=== PATIENT | male | born 1970 | race Caucasian/White ===

== ENCOUNTER → 2019-02-22 12:37 | Outpatient (CLI) | payer OTHER, SELFPAY ==
[2015-07-10 15:22] VITALS: BMI 45.4
[2019-02-22 13:58] LABS: Absolute Lymphocyte Count 1.77 X10^3/uL (0.83-4.51); Absolute Neutrophil Count 4.6 X10^3/uL (2.0-7.7); Basophil# 0.04 X10^3/uL; Basophil% 0.5 % (0-1); Eosinophil# 0.28 X10^3/uL; Eosinophils% 3.8 % (0-5); Hematocrit 45.7 % (40-54); Hemoglobin 15.3 g/dL (13.0-16.5); Lymphocyte # 1.77 X10^3/ul (4.0); Mean Corp Hgb Conc 33.5 g/dL (32-36); Mean Corpuscular Volume 89.6 fL (80-94); Mean Platelet Vol. 8.7 fl (6.2-12.0); Monocyte# 0.66 X10^3/uL; Monocyte% 8.9 % (0-10); NRBC Flagged by Analyzer 0 % (0-5); Neutrophil % 62.4 % (47-70); Platelet Count 294 K/mm3 (150-450); RBC Distribution Width CV 11.9 % (11.6-14.6); RBC Distribution Width SD 38.7 fl (35.1-43.9); White Blood Count 7.4 K/mm3 (4.4-11.0)
[2019-02-22 14:08] LABS: ALB/GLOB Ratio 0.8 RATIO (0.9-2.4); AST(SGOT) 30 U/L (15-37); Alanine Aminotransfer ALT/SGPT 51 U/L (16-61); Albumin, Serum 3.7 g/dL (3.2-5.0); Alkaline Phosphatase 83 U/L (45-117); Anion Gap 8 (5-15); BUN 18 mg/dL (7-18); BUN/Creat Ratio 18.2 RATIO (10-20); Calcium,Total 8.9 mg/dL (8.5-10.1); Chloride 103 mmol/L (98-107); Cholesterol 192 mg/dL (200); Creatinine, Serum 0.99 mg/dL (0.70-1.30); EST Glomerular Filtration Rate 85 mL/min (>60); Est Glom Filt Rate - Afr Amer 103 mL/min (>60); Globulin 4.4 g/dL (2.2-4.2); Glucose 118 mg/dL (74-106); High Density Lipoprotein 45 mg/dL; PSA,Total - Annual Screen 0.42 ng/mL (0.00-4.00); Potassium 4.3 mmol/L (3.5-5.1); Protein, Total 8.1 g/dL (6.4-8.2); Sodium Level 139 mmol/L (136-145); Triglycerides 92 mg/dL; Very Low Density Lipoprotein 18 mg/dL (5-40)
[2019-02-22 14:15] LABS: Hemoglobin A1c 7.5 % (4.2-6.3)
== END ==
PROVIDERS: Family Provider Family Medicine; PCP Family Medicine; Referring Provider Family Medicine; Visit Provider Family Medicine
DX: Z00.00 Encounter for general adult medical examination without abnormal findings (principal); R73.03 Prediabetes; Z12.5 Encounter for screening for malignant neoplasm of prostate
CPT/HCPCS: 36415; 80053; 80061; 83036; 84153; 85025; G0103

== ENCOUNTER 2020-07-25 08:41 | Day surgery (SDC) | payer OTHER, SELFPAY ==
[2020-07-25 09:13] VITALS: BP 161/82; PULSE 82; RESP 18; TEMP 36.2; O2SAT 97; BMI 48.4
[2020-07-25] MEDS: Lactated Ringers 1,000 ML 100 ML IV (09:20)
--- NOTE | 2020-07-25 09:27 | H&P.OPEN ---
History of Present Illness Date of Admission: 07/25/20 The patient is a 50 year old M presents for screening colonoscopy. Patient has never had previous colonoscopy. Denies any family history of colon cancer. Patient denies any chronic abdominal pain nausea vomiting and GERD. Patient has bowel moods daily denies any blood. Past Medical/Surgical History - Planned Operation Planned Operative Procedure/s: COLONOSCOPY Date of Operative Procedure: 07/25/20 Permit Signed: Yes S.O.S: No Is This Patient Having a Total Joint: No - Previous Hospitalizations/Surgeries HX Hospitalizations: No HX of Surgeries: APPENDECTOMY Any Problems With Anesthesia: No You/Your Family Experience Fever (Hyperthermia) With Anes: No Cholinesterase deficiency: No - Cardiovascular Hx Chest Pain within Last 2 months: No Hx of Irregular Heartbeat and/or Afib: No Hx Heart Attack: No Hx Congestive Heart Failure: No Hx Rheumatic Fever: No Hx Hypertension: No - BEEN HIGH BUT NEVER TX'D Hx Internal Defibrillator: No Hx Pacemaker: No Hx Cardiac Catheterization: No Hx Cardiac Surgery/Stents/Etc.: No Hx Stress Test: Yes - YRS AGO HX Edema: No Hx Pain in Legs when Walking/Leg Cramps: No - Respiratory Chronic Cough: No HX of Shortness of Breath: No Hoarseness: No Hx Chronic Obstructive Pulmonary Disease (COPD): No Hx Asthma: Yes - ALLERGY INDUCED ASTHMA- NO INHALER USED PRESENTLY Hx Emphysema: No Hx Sleep Apnea: Yes - NON-COMPLIANT CPAP: No BIPAP: No Hx Oxygen Use at Home: No Hx Respiratory Tract Infection/Cold (presently): No Do You Snore Loudly (louder than talking or can be heard): Yes Do You Often Feel Tired/ Fatigued/ Sleepy Dring Daytime?: No Has Anyone Observed You Stop Breathing During Sleep?: No Result (for STOP score): Positive Hx Smoking: No Smoking Status: Never smoker - Gastrointestinal Hx Gastroesophageal Reflux: No Hx Gastrointestinal Disorders: No Hx Gastrointestinal Bleed: No Hx Ulcer: No Hx Hiatal Hernia: No Difficulty Chewing/Swallowing: No Recent Onset of Swallowing Problems: No Special diet followed at home: No Hx Unplanned Weight Loss of 20#: No HX Unplanned Weight Gain of 20#: No - Neurological Hx Seizures: No HX Syncope/Blackout Spells/Unconsciousness: No Hx CVA/Stroke: No Hx Transient Ischemic Attacks (TIA): No Hx Multiple Sclerosis: No Hx Parkinson's Disease: No Hx Head/Neck Injury: No Hx Headaches: No Hx Back Injury/Pain: No Recent Onset of Speech Difficulty: No Restless Legs: No Does patient have nerve stimulator: No - Blood Disorder Hx Leukemia: No Bleeding Tendencies: No Hx Deep Vein Thrombosis: No Hx High Cholesterol: No Blood Transmitted Disease: No Hx Hepatitis: No Hx Cirrhosis: No Hx Anemia: No Hx Blood Disorders: No - Genitourinary Hx Renal Disease: No Hx Dialysis: No - Musculoskeletal Hx Arthritis: No Hx Rheumatoid Arthritis: No Hx Gout: No Recent Onset of an Orthopedic Problem: No - Endocrine Hx Diabetes: No Insulin: No Thyroid Disease: No Hx Steroid Therapy: Yes - Psycho/Social Hx Substance Use: No Hx Alcohol Use: No Hx Anxiety: No Hx Depression: No Mental Illness: No Hx Dementia: No - Miscellaneous Hx Cancer: No Recent Exposure to Contagious Disease: No Active MRSA: No Hx of C-Diff: No Any Loose Teeth: No Allergies aspirin Allergy (Verified 07/25/20 09:12) Anaphylaxis ibuprofen Allergy (Verified 07/25/20 09:12) Anaphylaxis mushroom Allergy (Verified 07/25/20 09:12) Anaphylaxis Penicillins Allergy (Verified 07/25/20 09:12) Anaphylaxis - Discharge Is Pt Admitted From a Correction, or a Residential: No Who Could Help: After D/C, Where Do you Plan to Go: Return Home - Physical Exam Vitals/I&O's: Vital Signs Temp Pulse Resp BP Pulse Ox 97.2 F L 82 18 161/82 H 97 07/25/20 09:13 07/25/20 09:13 07/25/20 09:13 07/25/20 09:13 07/25/20 09:13 Oxygen Delivery Method Room Air Weight: 356 lb 11.327 oz Body Mass Index (BMI) 48.4 General: Alert, Oriented x3, Cooperative, No apparent distress HEENT: Atraumatic Lungs: Normal air movement Cardiovascular: Regular Rhythm Abdomen: Soft, Non Tender, Non-Distended, Obese, Hernia - Incisional at umbilicus Extremities: No clubbing, No cyanosis Neurological: Cranial nerves II-XII grossly intact Psych/Mental Status: Normal Affect Microbiology Past 72 Hours 07/24/20 09:00 Interface Orders SARS-CoV-2 Antigen (Rapid) - Final Current Medications Lactated Ringer's () 1,000 mls @ 100 mls/hr IV .Q10H LATONIA Last Admin: 07/25/20 09:20 Dose: 100 mls/hr Documented by: Assessment/Plan 50-year-old male for screening for colon cancer Procedure Criteria Procedure Type: Elective COVID Risk Discussion: The surgeon/proceduralist and patient have discussed in detail the risk of exposure to and/or potential harm posed by the COVID-19 virus with having a surgery/procedure at this time versus the risk of delaying the surgery/procedure. It is not possible to know either the risk of delaying the surgery or procedure or chance of getting an infection with perfect accuracy, but a joint decision was made between the patient and the surgeon/proceduralist to proceed at this time with the scheduled surgery/procedure as indicated on the consent form. Surgery Risks - Colonoscopy I discussed with the patient the risks of the procedure: Yes Risks Include but are not Limited To: Risks include but are not limited to: Bleeding, perforation requiring further surgery, inability to complete colonoscopy requiring barium enema.
--- NOTE | 2020-07-25 10:00 | COLBX_PTH ---
PATIENT: TANIYA KENYON LOC: EN U#:[id number] AGE/SX: 50/M ROOM: RE07/25/[address]: Dr. Kelsey Barrett MD : 1970 BED: DIS: 07/25/2020 SPEC #: [id number] RECD: 07/25/20 11:04 STATUS: MARCY MADAN #: [id number] SHOSHANA: 07/25/20 10:[address]: Kelsey Barrett DEPT: SURGICAL PATHOLOGY RECD BY: Elizabeth Lynch ENTERED: 07/25/20 11:38 SP TYPE: COLON BX OT DR: Dr. Hernan Cardenas DO Tissues: A - Cecum, NOS B - Ascending colon C - Transverse colon D - Rectum, NOS Procedures: Surgery Specimen Level IV HEADER OPERATION: Colonoscopy - open access (MAC) PRE-OP DIAGNOSIS: Screening for colon cancer TISSUE SUBMITTED: A - Biopsy of cecum polyp, B - Biopsy of ascending colon polyp, C - Transverse polyps per snare and biopsy, D - Rectum polyps MICROSCOPIC DIAGNOSIS A. Cecum polyp, biopsy: Fragments of small intestinal and colonic mucosa, no pathologic diagnosis. Negative for adenomatous changes. B. Ascending colon polyp, biopsy: Fragments of colonic mucosa, no pathologic diagnosis. Negative for adenomatous changes. C. Transverse colon polyp, snare and biopsy: Fragments of tubular adenoma. D. Rectum polyps, biopsy: Fragments of hyperplastic polyp. SJ:george 07/26/2020 MICROSCOPIC DESCRIPTION Slides are reviewed. GROSS DESCRIPTION A - Received in fixative is one container labeled with the patient's name and designated biopsy of cecum polyp. The specimen consists of multiple irregular fragments of light mcneill soft tissue that in aggregate measure 0.8 x 0.8 x 0.1 cm. The specimen is totally submitted in one cassette. B - Received in fixative is one container labeled with the patient's name and designated biopsy of ascending colon polyp. The specimen consists of multiple irregular fragments of light mcneill soft tissue that in aggregate measure 1 x 0.3 x 0.1 cm. The specimen is totally submitted in one cassette. C - Received in fixative is one container labeled with the patient's name and designated transverse polyp snare and biopsy. The specimen consists of multiple irregular fragments of light mcneill soft tissue that in aggregate measure 1 x 0.6 x 0.1 cm. The specimen is totally submitted in one cassette. D - Received in fixative is one container labeled with the patient's name and designated rectum polyps. The specimen consists of two irregular fragments of light mcneill soft tissue that in aggregate measure 0.5 x 0.5 x 0.2 cm. The specimen is totally submitted in one cassette. / EVE:george 07/25/20 TC:1 CPT: 94687 x4
[2020-07-25 10:51] VITALS: BP 125/54; BP 161/82; PULSE 82; RESP 18; TEMP 36.1; O2SAT 95
[2020-07-25 10:56] VITALS: BP 132/67; BP 161/82; PULSE 90; RESP 92; O2SAT 95
[2020-07-25 11:01] VITALS: BP 133/69; BP 161/82; PULSE 84; RESP 18; O2SAT 95
[2020-07-25 11:06] VITALS: BP 151/91; BP 161/82; PULSE 83; RESP 18; TEMP 36.6; O2SAT 97
--- NOTE | 2020-07-25 11:09 | OP.CCLET_ITS ---
07/25/2020 Hernan Cardenas [address] [place] [address] Re : Colonoscopy procedure for Jovani Hernandez Dear Dr. Cardenas This procedure was performed on Saturday, July 25, 2020. My impressions and recommendations are as follows: Impressions : - Three less than 5 mm polyps in the rectum and in the transverse colon, removed with a hot snare. Resected and retrieved. - Three less than 5 mm polyps in the transverse colon, in the ascending colon and in the cecum, removed with a cold biopsy forceps. Resected and retrieved. - One less than 5 mm polyp in the rectum, removed using injection-lift and a hot snare. Resected and retrieved. - The examination was otherwise normal on direct and retroflexion views. Recommendations : - Discharge patient to home. - Resume previous diet. - Continue present medications. - Await pathology results. - Repeat colonoscopy in 3 years for surveillance based on pathology results. My findings are described in the full procedure note, which is enclosed. If I can be of further assistance, please feel free to contact me at Doctor phone number(s): , Work: . Sincerely, MD Kelsey Walker MD 07/25/2020 10:56:22 AM This report has been signed electronically.
--- NOTE | 2020-07-25 11:09 | OP.COLON_ITS ---
Patient Name: Jovani Hernandez Procedure Date: 07/25/2020 9:51 AM Date of : 1970 Age: 50 Procedure: Colonoscopy Indications: Screening for colorectal malignant neoplasm Providers: Kelsey Barrett MD Referring MD: Hernan Cardenas Medicines: Monitored Anesthesia Care Patient Profile: This is a 50 year old male. Last Colonoscopy: none. The patient's first colonoscopy is today. Complications: No immediate complications. Procedure: Pre-Anesthesia Assessment: - Prior to the procedure, a History and Physical was performed, and patient medications and allergies were reviewed. The patient's tolerance of previous anesthesia was also reviewed. The risks and benefits of the procedure and the sedation options and risks were discussed with the patient. All questions were answered, and informed consent was obtained. Prior Anticoagulants: The patient has taken no previous anticoagulant or antiplatelet agents. ASA Grade Assessment: Per anesthesia. After reviewing the risks and benefits, the patient was deemed in satisfactory condition to undergo the procedure. After I obtained informed consent, the scope was passed under direct vision. Throughout the procedure, the patient's blood pressure, pulse, and oxygen saturations were monitored continuously. The colonoscope was introduced through the anus and advanced to the cecum, identified by the appendiceal orifice, ileocecal valve and palpation. The colonoscopy was performed without difficulty. The patient tolerated the procedure well. The quality of the bowel preparation was good. Scope In: 10:02:34 AM Scope Withdrawal Time 0 hours 38 minutes 43 seconds Scope Out: 10:47:47 AM Total Procedure Duration Time 0 hours 45 minutes 13 seconds Findings: The perianal and digital rectal examinations were normal. Three semi-sessile polyps were found in the rectum and transverse colon. The polyps were less than 5 mm in size. These polyps were removed with a hot snare. Resection and retrieval were complete. Three sessile polyps were found in the transverse colon, ascending colon and cecum. The polyps were less than 5 mm in size. These polyps were removed with a cold biopsy forceps. Resection and retrieval were complete. A less than 5 mm polyp was found in the rectum. The polyp was sessile. The polyp was removed with a saline injection-lift technique using a hot snare. Resection and retrieval were complete. The exam was otherwise without abnormality on direct and retroflexion views. Impression: - Three less than 5 mm polyps in the rectum and in the transverse colon, removed with a hot snare. Resected and retrieved. - Three less than 5 mm polyps in the transverse colon, in the ascending colon and in the cecum, removed with a cold biopsy forceps. Resected and retrieved. - One less than 5 mm polyp in the rectum, removed using injection-lift and a hot snare. Resected and retrieved. - The examination was otherwise normal on direct and retroflexion views. Recommendation: - Discharge patient to home. - Resume previous diet. - Continue present medications. - Await pathology results. - Repeat colonoscopy in 3 years for surveillance based on pathology results. Procedure Code(s): --- Professional --- 83768, PT, Colonoscopy, flexible; with removal of tumor(s), polyp(s), or other lesion(s) by snare technique 06248, 59, Colonoscopy, flexible; with biopsy, single or multiple 96966, Colonoscopy, flexible; with directed submucosal injection(s), any substance Diagnosis Code(s): --- Professional --- Z12.11, Encounter for screening for malignant neoplasm of colon K62.1, Rectal polyp D12.3, Benign neoplasm of transverse colon (hepatic flexure or splenic flexure) D12.2, Benign neoplasm of ascending colon D12.0, Benign neoplasm of cecum CPT copyright 2017 [employer]. All rights reserved. The codes documented in this report are preliminary and upon family medicine chair review may be revised to meet current compliance requirements. MD Kelsey Walker MD 07/25/2020 10:56:22 AM This report has been signed electronically. Number of Addenda: 0 Note Initiated On: 07/25/2020 9:51 AM
[2020-07-25 11:23] VITALS: BP 161/82
== END 2020-07-25 11:27 | disposition home or self-care (01) ==
LOC: EN 08:42 → AC 08:43
PROVIDERS: PCP Family Medicine; Referring Provider Family Medicine; Visit Provider Surgery
PROC: 0DJD8ZZ Inspection of Lower Intestinal Tract, Via Natural or Artificial Opening Endoscopic (ICD-10-PCS; CPT 45378; principal; 2020-07-25 09:55)
DX: Z12.11 Encounter for screening for malignant neoplasm of colon (principal); D12.3 Benign neoplasm of transverse colon; K62.1 Rectal polyp; K63.5 Polyp of colon; G47.30 Sleep apnea, unspecified; Z91.19 Patient's noncompliance with other medical treatment and regimen; Z20.828 Contact with and (suspected) exposure to other viral communicable diseases
CPT/HCPCS: 45380; 45381; 45385; 87426; 88305; C9803; J7120; A4216; J2405

== ENCOUNTER 2021-06-03 17:50 | Outpatient (CLI) | payer OTHER, SELFPAY | END 2021-06-03 23:59 | disposition short-term general hospital (02) | PROVIDERS: Visit Provider Family Medicine | DX: U07.1 COVID-19 (principal) | CPT/HCPCS: 87635; U0003; U0005 ==

== ENCOUNTER 2021-06-07 11:30 | Outpatient (CLI) | payer OTHER, SELFPAY ==
[2021-06-07 11:39] VITALS: BP 151/91; PULSE 74; RESP 16; TEMP 36.3; BMI 47.5
[2021-06-07] MEDS: 0.9% Saline Lock 10 ML Syringe IV (11:43)
[2021-06-07 12:22] VITALS: BP 149/94; PULSE 64; RESP 16; TEMP 36.7; O2SAT 98
[2021-06-07 13:18] VITALS: BP 151/91; PULSE 74; RESP 16; TEMP 36.9; O2SAT 97
== END 2021-06-07 23:59 | disposition home or self-care (01) ==
LOC: MS3OUT 11:30 → MS3 11:31
PROVIDERS: Referring Provider Nurse Practitioner Adult Health; Visit Provider Nurse Practitioner Adult Health
DX: Z23 Encounter for immunization (principal); U07.1 COVID-19
CPT/HCPCS: J7050; M0243; A4216; Q0244

== ENCOUNTER → 2022-12-26 | Outpatient (CLI) | payer OTHER, SELFPAY ==
[2022-12-26 17:35] LABS: Absolute Lymphocyte Count 1.72 X10^3/uL (0.83-4.51); Absolute Neutrophil Count 3.8 X10^3/uL (2.0-7.7); Basophil# 0.06 X10^3/uL; Basophil% 0.9 % (0-1); Eosinophil# 0.21 X10^3/uL; Eosinophils% 3.2 % (0-5); Hematocrit 44.3 % (40-54); Lymphocyte # 1.72 X10^3/ul (0.83-4.51); Lymphocyte % 26.5 % (19-41); Mean Corp Hgb Conc 33.9 g/dL (32-36); Mean Corpuscular Hgb 29.9 pg (27.0-32.0); Mean Corpuscular Volume 88.2 fL (80-94); Mean Platelet Vol. 8.9 fl (6.2-12.0); Monocyte% 9.2 % (0-10); NRBC Flagged by Analyzer 0 % (0-5); Neutrophil # 3.83 X10^3/uL (2.7-7.7); Neutrophil % 59.1 % (47-70); Platelet Count 301 K/mm3 (150-450); RBC Distribution Width CV 11.9 % (11.6-14.6); RBC Distribution Width SD 38.6 fl (35.1-43.9); Red Blood Count 5.02 M/mm3 (4.6-6.2); White Blood Count 6.5 K/mm3 (4.4-11.0)
[2022-12-26 17:49] LABS: Hemoglobin A1c 9.2 % (3.8-5.6)
[2022-12-26 18:11] LABS: ALB/GLOB Ratio 0.8 RATIO (0.9-2.4); AST(SGOT) 17 U/L (15-37); Alanine Aminotransfer ALT/SGPT 36 U/L (16-61); Albumin, Serum 3.6 g/dL (3.2-5.0); Alkaline Phosphatase 104 U/L (45-117); Anion Gap 8 (5-15); BUN 17 mg/dL (7-18); BUN/Creat Ratio 17.3 RATIO (10-20); Calcium,Total 9.3 mg/dL (8.5-10.1); Chloride 102 mmol/L (98-107); Creatinine, Serum 0.98 mg/dL (0.70-1.30); EST Glomerular Filtration Rate 85 mL/min (>60); Est Glom Filt Rate - Afr Amer 102 mL/min (>60); Globulin 4.5 g/dL (2.2-4.2); Glucose 182 mg/dL (74-106); Potassium 3.8 mmol/L (3.5-5.1); Protein, Total 8.1 g/dL (6.4-8.2); Sodium Level 136 mmol/L (136-145)
[2023-01-02 11:09] LABS: Testosterone, Free 5.62 ng/dL (5.00-21.00); Testosterone, Total 156 ng/dL (264-916)
== END | disposition home or self-care (01) ==
LOC: BFHLAB 16:10
PROVIDERS: PCP Family Medicine; Referring Provider Family Medicine; Visit Provider Family Medicine
DX: Z00.01 Encounter for general adult medical examination with abnormal findings (principal); Z12.5 Encounter for screening for malignant neoplasm of prostate; R73.03 Prediabetes; N52.9 Male erectile dysfunction, unspecified
CPT/HCPCS: 36415; 80053; 83036; 84153; 84402; 84403; 85025; G0103

== ENCOUNTER → 2023-01-08 | Outpatient (CLI) | payer OTHER, SELFPAY ==
[2023-01-08 15:55] LABS: Prolactin 5.8 ng/mL; Thyroid Stim Hormone (TSH) 1.67 uIU/mL (0.358-3.74)
[2023-01-16 11:09] LABS: Testosterone, Free 4.87 ng/dL (5.00-21.00); Testosterone, Total 168 ng/dL (264-916); Transferrin 258 mg/dL (177-329)
== END | disposition home or self-care (01) ==
LOC: BFHLAB 13:33
PROVIDERS: PCP Family Medicine; Referring Provider Family Medicine; Visit Provider Family Medicine
DX: E29.1 Testicular hypofunction (principal)
CPT/HCPCS: 36415; 84146; 84402; 84403; 84443; 84466

== ENCOUNTER 2024-08-02 17:34 | Emergency (ER) | payer OTHER, SELFPAY ==
[2024-08-02 17:36] VITALS: BP 146/115; PULSE 104; RESP 20; TEMP 36.4; O2SAT 96
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
[2024-08-02 19:35] VITALS: BP 155/80; PULSE 66; RESP 12; O2SAT 98
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
== END 2024-08-02 20:20 | disposition home or self-care (01) ==
LOC: ED 20:16
PROVIDERS: Emergency Provider Emergency Medicine; PCP Family Medicine; Visit Provider Emergency Medicine
DX: S63.92XA Sprain of unspecified part of left wrist and hand, initial encounter (principal); S59.902A Unspecified injury of left elbow, initial encounter; V43.52XA Car driver injured in collision with other type car in traffic accident, initial encounter; R03.0 Elevated blood-pressure reading, without diagnosis of hypertension
CPT/HCPCS: 73080; 73110; 99284